=== PATIENT | female | born 1985 | race Two or more races ===

== ENCOUNTER 2017-04-19 11:08 | Emergency (ER) | payer SELFPAY ==
[2017-04-19] MEDS ORDERED: IBUPROFEN600 M1 PO (12:17)
[2017-04-19] MEDS ORDERED: NEOMYCIN-POLYMY10 M5 LEFT EAR (12:41)
== END 2017-04-19 12:58 ==
LOC: EDMED 11:08
DX: H60.92 Unspecified otitis externa, left ear (principal); H60.332 Swimmer's ear, left ear